=== PATIENT | male | born 1960 | race Caucasian/White ===

== ENCOUNTER 2017-03-26 09:49 | Observation (INO) ==
[2017-03-26] MEDS ORDERED: MORPHINE 2 MG/1 ML SYRINGE IV PRN ×3 (10:30→17:18)
[2017-03-26] MEDS ORDERED: NITROGLYCERIN 2% OINT 1 INCH/GM PACK TOP STA (10:30)
[2017-03-26] MEDS ORDERED: ENOXAPARIN 100 MG/ML SYRINGE SUBCUT STA (10:30)
[2017-03-26] MEDS ORDERED: ASPIRIN 325 MG TABLET PO STA (10:30)
[2017-03-26] MEDS ORDERED: ONDANSETRON 4 MG/2 ML VIAL IV PRN ×2 (10:30→16:03)
[2017-03-26] MEDS ORDERED: ENOXAPARIN 120 MG/0.8 ML SYRINGE SUBCUT ONE (11:15)
[2017-03-26] MEDS ORDERED: ASPIRIN 325 MG TABLET ONE (11:16)
[2017-03-26] MEDS ORDERED: NITROGLYCERIN 2% OINT 1 INCH/GM PACK TOP ONE (11:16)
[2017-03-26 11:42] LABS: Basophils % 0.3 % (0.0-0.8); Eosinophils % 0.2 % (0.00-10.9); Hematocrit 41.2 VOL% (42.0-52.0); Immature Granulocytes % 0.4 %; Immature Granulocytes Absolute 0.04 #; Lymphocytes # 1.3 10*3/uL (1.4-4.0); Lymphocytes % 14.6 % (21.2-54.2); Mean Corpuscular Hemoglobin 32 PG (27-34); Mean Corpuscular Volume 92.8 FL (87-102); Mean Platelet Volume 10.3 FL (9.6-12.0); Monocytes # 0.2 10*3/uL (0.11-0.8); Monocytes % 2.3 % (1.7-12.7); Neutrophils # 7.4 10*3/uL (1.4-7.4); Neutrophils % 82.2 % (38.7-73.9); Platelet Count 299 T/CUMM (130-400); Red Blood Count 4.44 MC/CUMM (3.8-5.5); Red Cell Distribution Width 12.6 % (9.3-17.3)
[2017-03-26 11:52] LABS: PT Patient Result 10.6 SECS; Partial Thromboplastin Time 22.2 SECS (0-40)
[2017-03-26 12:20] LABS: Albumin 4.2 G/DL (3.4-5.0); Bilirubin,Total 0.8 MG/DL (0.2-1.0); Calcium 9.4 MG/DL (8.5-10.1); Osmolality,Calculated 277.8 MOS/KG (273-304); Potassium 3.9 MMOL/L (3.5-5.1); Total Protein 7.8 G/DL (6.4-8.3)
[2017-03-26 13:13] LABS: Hypochromasia 1+
[2017-03-26] MEDS ORDERED: diphenhydrAMINE CAP 25 MG CAPSULE PO ONE (13:20)
[2017-03-26] MEDS ORDERED: DIAZEPAM 5 MG TABLET PO ONE (13:20)
[2017-03-26] MEDS ORDERED: TICAGRELOR 90 MG TABLET PO STA (13:20)
[2017-03-26] MEDS ORDERED: HEPARIN/NACL 0.9% 2 UNITS/ML 2,000 ML IV ONE (14:33)
[2017-03-26] MEDS ORDERED: LIDOCAINE 1% 20 ML VIAL ONE (14:33)
[2017-03-26] MEDS ORDERED: HYDROmorphone 2 MG/1 ML VIAL ONE (14:45)
[2017-03-26] MEDS ORDERED: MIDAZOLAM 2 MG/2 ML VIAL ONE (14:45)
[2017-03-26] MEDS ORDERED: TICAGRELOR 90 MG TABLET ONE (16:00)
[2017-03-26] MEDS ORDERED: NITROGLYCERIN SL 0.4 MG TABLET SL PRN (16:03)
[2017-03-26] MEDS ORDERED: ZALEPLON 5 MG CAPSULE PO PRN (16:03)
[2017-03-26] MEDS ORDERED: CLORAZEPATE 7.5 MG TABLET PO PRN (17:17)
[2017-03-26] MEDS: SODIUM CHLORIDE 0.45% 1,000 ML IV SCH (17:25)
[2017-03-26] MEDS: TICAGRELOR 90 MG TABLET PO SCH (21:45)
[2017-03-26] MEDS: CARVEDILOL 6.25 MG TABLET PO SCH (21:45)
[2017-03-26] MEDS ORDERED: ASPIRIN EC 81 MG TABLET PO SCH (22:00)
[2017-03-26] MEDS ORDERED: ATORVASTATIN 40 MG TABLET PO SCH (22:00)
[2017-03-27] MEDS: SODIUM CHLORIDE 0.45% 1,000 ML IV SCH ×2 (00:43→08:37)
[2017-03-27 04:43] LABS: Basophils % 0.3 % (0.0-0.8); Eosinophils # 0.1 10*3/uL (0.0-0.87); Eosinophils % 0.8 % (0.00-10.9); Hematocrit 36.7 VOL% (42.0-52.0); Hemoglobin 12.3 GM/DL (14.0-18.0); Immature Granulocytes % 0.5 %; Immature Granulocytes Absolute 0.06 #; Lymphocytes # 1.5 10*3/uL (1.4-4.0); Lymphocytes % 12.9 % (21.2-54.2); Mean Corpuscular HGB Conc 33.5 GM/DL (32-36); Mean Corpuscular Hemoglobin 31 PG (27-34); Mean Corpuscular Volume 93.6 FL (87-102); Mean Platelet Volume 10.1 FL (9.6-12.0); Monocytes # 0.9 10*3/uL (0.11-0.8); Monocytes % 7.6 % (1.7-12.7); Neutrophils # 9.2 10*3/uL (1.4-7.4); Neutrophils % 77.9 % (38.7-73.9); Platelet Count 314 T/CUMM (130-400); Red Blood Count 3.92 MC/CUMM (3.8-5.5); Red Cell Distribution Width 12.9 % (9.3-17.3); White Blood Count 11.8 T/CUMM (4-12)
[2017-03-27] MEDS: ACETAMINOPHEN 325 MG TABLET PO PRN ×2 (04:56→08:34)
[2017-03-27 05:13] LABS: Calcium 8.5 MG/DL (8.5-10.1); Osmolality,Calculated 276.5 MOS/KG (273-304); Potassium 3.8 MMOL/L (3.5-5.1)
[2017-03-27 05:16] LABS: CKMB % 6.8 %
[2017-03-27 05:19] LABS: Troponin I Only 1.91 NG/ML (0.00-0.045)
[2017-03-27] MEDS: TICAGRELOR 90 MG TABLET PO SCH (08:35)
[2017-03-27] MEDS: CARVEDILOL 6.25 MG TABLET PO SCH (08:36)
[2017-03-27 08:43] VITALS: BP 117/63
[2017-03-27] MEDS ORDERED: OMEGA 3 ACID ETHYL ESTERS 1 GM CAPSULE PO SCH (09:00)
[2017-03-27] MEDS ORDERED: LOSARTAN 50 MG TABLET PO SCH (09:00)
[2017-03-27] MEDS ORDERED: COENZYME Q10 100 MG CAPSULE PO SCH (09:00)
== END 2017-03-27 12:55 | disposition home or self-care (01) ==
LOC: N.ED 09:49 → N.EDINP 09:49 → N.CL 13:00 → N.TELES 16:59 → INTOOBSV 16:59
PROVIDERS: ADMIT Emergency Medicine; ATTEND Internal Medicine Cardiovascular Disease
PROC: CLCCHCL (ICD-10-PCS; 2017-03-26 14:15)